=== PATIENT | female | born 1945 | race Caucasian/White ===

== ENCOUNTER → 2017-06-20 | Outpatient (CLI) | payer BC, MEDICARE ==
[~2017-06-20] MED LIST: ALDACTONE 25MG25 M1 PO; ASPIR-LOW81 MG PO; ASPIRIN E.C. 8181 MG PO; BENAZEPRIL20 MG PO; BORAGE; CALCIUM 600/VIT1 TAB PO; CALCIUM CARBON500 M1 PO; CYCLOBENZAPRINE10 MG PO; FISH OIL1 IU PO; FISH OIL1000 MG PO; FLAXSEED OIL1 CAP PO; FLEXERIL10 MG PO; GLUCOSAMINE CHO1 CAP PO; GLUCOSAMINE/CHONDROI; HCTZ; LEVOTHYROXIN0.088 MG PO; LEVOTHYROXINE0.05 M1 PO; LEVOXYL0.1 MG PO; LIPITOR 10MG10 MG PO; LORATADINE10 MG PO; LOTENSIN 1010 MG/TAB PO; LOTENSIN10 MG PO; MUCINEX 60600 MG/TAB PO; OSTEO-BI-FLEX 21 TAB PO; PHENERGAN 25 TA25 MG PO; PRAVACHOL 20MG20 MG PO; PRAVASTATIN20 MG PO; PREMARIN VAG42.5 GM VG; PREVASTATIN PO; TAMBOCOR 1100 MG/TAB PO; TEMOVATE OINT30 GM TP; TIAZAC360 MG PO; TOPROL XL100 MG PO; TOPROL XL50 MG PO; VITAMIN D; XYAL5 MG PO; ZANTAC 7575 MG PO
== END ==
LOC: MC.RAD 07:39
DX: Z12.31 Encounter for screening mammogram for malignant neoplasm of breast (principal); R92.0 Mammographic microcalcification found on diagnostic imaging of breast

== ENCOUNTER → 2017-06-26 | Outpatient (CLI) | payer BC, MEDICARE | LOC: MC.RAD 14:26 | DX: R92.0 Mammographic microcalcification found on diagnostic imaging of breast (principal) ==

== ENCOUNTER → 2017-07-03 | Outpatient (CLI) | payer BC, MEDICARE | LOC: MC.RAD 08:21 | DX: R92.0 Mammographic microcalcification found on diagnostic imaging of breast (principal) ==

== ENCOUNTER 2017-08-09 07:28 | Day surgery (SDC) | payer BC, MEDICARE ==
[2006-09-02 10:22] VITALS: BP 151/85
[~2017-08-09] VITALS: Ht 160 cm; Wt 65.5 kg
[2017-08-09 08:44] VITALS: BP 155/76; PULSE 63; TEMP 98.2
[2017-08-09] MEDS ORDERED: ZANTAC 150MG T150 MG PO (09:02)
[2017-08-09] MEDS ORDERED: SYNTHROID0.088 MG/T PO (09:03)
[2017-08-09] MEDS ORDERED: ATROVENT NASAL15 ML NS (09:10)
[2017-08-09] MEDS ORDERED: STOOL SOFTENER100 M2 PO (09:11)
[2017-08-09] MEDS ORDERED: PROBIOTIC-MAJOR PO (09:11)
[2017-08-09] MEDS ORDERED: TYLENOL 500MG500 MG PO (09:12)
[2017-08-09] MEDS ORDERED: TYLENOL SINUS1 EACH PO (09:13)
[2017-08-09 11:30] VITALS: BP 121/56; PULSE 61; TEMP 97.9
[2017-08-09 11:45] VITALS: BP 117/61; PULSE 60
[2017-08-09 12:00] VITALS: BP 142/53; PULSE 77
[2017-08-09 12:15] VITALS: BP 137/73; PULSE 90
[2017-08-09 12:30] VITALS: BP 148/66; PULSE 87
== END 2017-08-09 12:50 | disposition home or self-care (01) ==
LOC: SDCO 07:28
DX: D05.01 Lobular carcinoma in situ of right breast (principal); I10 Essential (primary) hypertension; E03.9 Hypothyroidism, unspecified; I48.91 Unspecified atrial fibrillation; M35.3 Polymyalgia rheumatica; E78.5 Hyperlipidemia, unspecified; K21.9 Gastro-esophageal reflux disease without esophagitis; Z95.0 Presence of cardiac pacemaker; Z82.49 Family history of ischemic heart disease and other diseases of the circulatory system; Z87.891 Personal history of nicotine dependence
CPT/HCPCS: J0690; J1100; J2250; J2405; J2704; J2795; J3010; J7120

== ENCOUNTER → 2018-07-29 | Outpatient (CLI) | payer BC ==
[~2018-07-29] MED LIST changes: +ATROVENT NASAL15 ML NS; +PROBIOTIC-MAJOR PO; +STOOL SOFTENER100 M2 PO; +SYNTHROID0.088 MG/T PO; +TYLENOL 500MG500 MG PO; +TYLENOL SINUS1 EACH PO; +ZANTAC 150MG T150 MG PO
== END ==
LOC: MC.RAD 14:00
DX: N63.20 Unspecified lump in the left breast, unspecified quadrant (principal); Z85.3 Personal history of malignant neoplasm of breast; Z98.890 Other specified postprocedural states
CPT/HCPCS: G0279

== ENCOUNTER → 2020-06-10 | Outpatient (CLI) | payer BC ==
[~2020-06-10] MED LIST changes: +ANORO IH; +FLAXSEED OIL1000 MG; +HCTZ12.5TAB PO; +LINZESS72 MCG PO; +PEPCID 20MG TAB20 MG PO; +REMERON 15M15 MG/TA1 PO; -SYNTHROID0.088 MG/T PO; +SYNTHROID0.1 MG/TAB PO; +TAMOXIFEN CITRA20 MG PO; +ZOFRAN ODT4 MG PO
== END ==
LOC: MC.RAD 11:17
DX: Z12.31 Encounter for screening mammogram for malignant neoplasm of breast (principal)

== ENCOUNTER → 2021-07-17 | Outpatient (CLI) | payer BC | LOC: MC.RAD 13:15 | DX: Z12.31 Encounter for screening mammogram for malignant neoplasm of breast (principal); Z85.3 Personal history of malignant neoplasm of breast ==

== ENCOUNTER 2021-09-27 15:55 | Outpatient (CLI) | payer BC ==
[2006-09-02 10:22] VITALS: BP 151/85
[~2021-09-27] VITALS: Ht 160 cm; Wt 57.5 kg
[~2021-09-27 15:55] MED LIST changes: -SYNTHROID0.1 MG/TAB PO; +SYNTHROID0.112 MG/T PO
[2021-09-27 16:14] VITALS: BP 143/86; PULSE 69; TEMP 98.6
[2021-09-27] MEDS ORDERED: PRILOSEC10 MG PO (16:29)
[2021-09-27] MEDS ORDERED: ARICEPT10 MG PO (16:29)
[2021-09-27] MEDS ORDERED: PRESERVISION1 SGL PO (16:30)
== END 2021-09-27 19:03 | disposition home or self-care (01) ==
LOC: EUO 15:55
DX: M81.0 Age-related osteoporosis without current pathological fracture (principal); Z79.899 Other long term (current) drug therapy
CPT/HCPCS: J0897

== ENCOUNTER 2022-06-05 12:46 | Outpatient (CLI) | payer BC ==
[2006-09-02 10:22] VITALS: BP 151/85
[~2022-06-05] VITALS: Ht 160 cm; Wt 53.9 kg
[~2022-06-05 12:46] MED LIST changes: +ARICEPT10 MG PO; +PRESERVISION1 SGL PO; +PRILOSEC10 MG PO
[2022-06-05 13:06] VITALS: BP 164/84; PULSE 73; TEMP 98.7
[2022-06-05] MEDS ORDERED: PROLIA60 MG/ML SQ (13:18)
[2022-06-05] MEDS ORDERED: VITAMIND3 5000 PO (13:19)
[2022-06-05] MEDS ORDERED: OSCAL 500 TAB500 MG PO (13:19)
[2022-06-05] MEDS ORDERED: REMERON45 MG PO (13:20)
--- NOTE | 2022-06-05 13:28 | NUR ---
Pt and exit dept following prolia injection. states she's toelrated previous injections without issue. Gait steady.
== END 2022-06-05 13:28 | disposition home or self-care (01) ==
LOC: EUO 12:46
DX: M81.0 Age-related osteoporosis without current pathological fracture (principal)
CPT/HCPCS: J0897

== ENCOUNTER 2024-04-27 10:55 | Emergency (ER) | payer BC ==
[~2024-04-27] VITALS: Ht 157.5 cm; Wt 54.5 kg
[~2024-04-27 10:55] MED LIST changes: +CITRACAL-D3 ER1 EACH PO; +GAS RELIEF125 MG PO; +MUCINEX 60600 MG/TA1 PO; +OSCAL 500 TAB500 MG PO; +PRILOSEC 20MG20 MG PO; -PRILOSEC10 MG PO; +PROLIA60 MG/ML SQ; +REMERON45 MG PO; +VITAMIND3 5000 PO
[2024-04-27 10:58] VITALS: TEMP 97.5
[2024-04-27] MEDS ORDERED: NS 500 ML IV ONE (11:15)
[2024-04-27 11:57] LABS: BASO % 0.3 % (0.0-2.0); EOS % 0.6 % (0.0-4.0); GRAN # 3.7 K/mm3 (1.4-6.5); GRAN % 58.5 % (42.2-75.2); HEMATOCRIT 46.8 % (37.0-47.0); HEMOGLOBIN 15.2 g/dl (12.5-16.0); LYMPH # 2.2 K/mm3 (1.2-3.4); MEAN CELL VOLUME 91 fl (80.0-100.0); MEAN CORPUSCULAR HEMOGLOBIN 30 pg (27-31); MEAN CORPUSCULAR HGB CONC 33 g/dl (33.0-37.0); MONO # 0.4 K/mm3 (0.1-0.6); MONO % 6.4 % (1.7-9.3); PLATELET COUNT 250 K/mm3 (130-400); RED BLOOD COUNT 5.14 M/mm3 (4.10-5.30); REDCELL DISTRIBUTION WIDTH-CV 13.3 % (11.5-14.5)
[2024-04-27 12:15] LABS: ALBUMIN 3.7 g/dL (3.4-4.8); BILIRUBIN,TOTAL 0.6 mg/dL (0.2-1.2); CALCIUM 9.5 mg/dL (8.4-10.2); CREATININE, serum 1.53 mg/dL (0.57-1.11); TOTAL PROTEIN 6.8 g/dl (6.2-8.1)
[2024-04-27 12:19] LABS: COLLECTION METHOD CATHETER
[2024-04-27 12:21] LABS: URINE APPEARANCE CLEAR (CLEAR/HAZY); URINE BLOOD NEGATIVE (NEGATIVE); URINE COLOR YELLOW (YELLOW); URINE GLUCOSE NEGATIVE (NEGATIVE); URINE KETONE NEGATIVE (NEGATIVE); URINE NITRATE POSITIVE (NEGATIVE); URINE PROTEIN(semi-quant) NEGATIVE (NEGATIVE); URINE UROBILINOGEN 0.2 E.U/dL (0.2-1.0)
[2024-04-27] MEDS ORDERED: CEPHALEXIN500 M1 PO (13:23)
[2024-04-27] MEDS ORDERED: cefTRIAXone 1 G in Water For Injection,Sterile 10 ML IV ONE (13:30)
[2024-04-27 13:32] VITALS: BP 116/58; PULSE 69
[2024-05-02] MEDS ORDERED: CALCIUM WITH D31 CTB (20:30)
== END 2024-04-27 13:48 | disposition home or self-care (01) ==
LOC: COL.ER 10:55
PROVIDERS: Personal Emergency Response Attendant
DX: N39.0 Urinary tract infection, site not specified (principal); Z96.0 Presence of urogenital implants
CPT/HCPCS: J0696; J7040

== ENCOUNTER 2024-05-02 16:47 | Inpatient (IN) | payer MEDICARE, BC ==
[~2024-05-02] VITALS: Ht 160 cm; Wt 57.5 kg
[~2024-05-02 16:47] MED LIST changes: +CEPHALEXIN500 M1 PO
[2024-05-02] MEDS ORDERED: NS 1,000 ML IV ONE (17:00)
[2024-05-02 17:02] LABS: COLLECTION METHOD CATHETER
[2024-05-02 17:11] LABS: PH 5.5 (5.0-8.5); URINE APPEARANCE CLEAR (CLEAR/HAZY); URINE BLOOD NEGATIVE (NEGATIVE); URINE COLOR YELLOW (YELLOW); URINE GLUCOSE NEGATIVE (NEGATIVE); URINE KETONE 1+ (NEGATIVE); URINE NITRATE NEGATIVE (NEGATIVE); URINE PROTEIN(semi-quant) NEGATIVE (NEGATIVE); URINE UROBILINOGEN 0.2 E.U/dL (0.2-1.0)
[2024-05-02] MEDS ORDERED: Acetaminophen 325 MG TAB PO ONE (17:15)
[2024-05-02 18:06] LABS: HEMOGLOBIN 12.2 g/dl (12.5-16.0); MEAN CELL VOLUME 88 fl (80.0-100.0); MEAN CORPUSCULAR HEMOGLOBIN 29 pg (27-31); MEAN CORPUSCULAR HGB CONC 33 g/dl (33.0-37.0); MEAN PLATELET VOLUME 10.3 fl (7.4-10.4); PLATELET COUNT 172 K/mm3 (130-400); RED BLOOD COUNT 4.15 M/mm3 (4.10-5.30); REDCELL DISTRIBUTION WIDTH-CV 13.3 % (11.5-14.5)
[2024-05-02 18:13] LABS: HEMATOCRIT 36.7 % (37.0-47.0)
[2024-05-02 18:26] LABS: ALBUMIN 3.2 g/dL (3.4-4.8); BILIRUBIN,TOTAL 0.6 mg/dL (0.2-1.2); C-REACTIVE PROTEIN 0.49 mg/dL (0.00-0.50); CALCIUM 8.3 mg/dL (8.4-10.2); CREATININE, serum 1.1 mg/dL (0.57-1.11); POTASSIUM 3.6 mEq/L (3.5-4.5); TOTAL PROTEIN 5.6 g/dl (6.2-8.1)
[2024-05-02] MEDS ORDERED: Iohexol 300 - 100 ML VIAL IV ONE (18:42)
[2024-05-02] MEDS ORDERED: NS 100 ML IV ONE (18:43)
[2024-05-02 18:56] LABS: BAND 5 % (0-10); LYMPHOCYTE 5 % (20.0-51.0); NEUTROPHILS 88 % (42.0-75.2); PLATELET ESTIMATE NORMAL (NORMAL)
[2024-05-02] MEDS ORDERED: CLARITIN 1010 MG/TAB PO (20:29)
[2024-05-02] MEDS ORDERED: CALCIUM WITH D31 CTB PO (20:30)
[2024-05-02] MEDS ORDERED: Atorvastatin 10 MG TAB PO SCH (20:45)
[2024-05-02] MEDS ORDERED: Donepezil 5 MG TAB PO SCH (21:00)
[2024-05-02] MEDS ORDERED: Mirtazapine 15 MG TAB PO SCH (21:00)
[2024-05-02] MEDS ORDERED: Ondansetron 4 MG/2 ML VIAL IV PRN (21:15)
[2024-05-02] MEDS ORDERED: D5 1/2 NS 1,000 ML IV SCH ×2 (21:15→21:30)
[2024-05-02] MEDS ORDERED: Acetaminophen 325 MG TAB PO PRN (21:15)
--- NOTE | 2024-05-02 23:00 | NUR ---
Pt transferred to room 326 from ED via bed accompanied by . Pt is alert and oriented to person. Admission completed. Pt is unable to answer questions other than "yes" or "no" questions. Fall risk precautions put into place. Bed alarm on, bed locked and low, yellow gown, and yellow socks placed on pt. At time of receival, pt appears to have had a small loose bowel movement. Incontinence care provided. Unable to obtain stool sample d/t insufficient amount of stool. Contact isolation in place until testing completed. PIV present to R hand and is saline locked at this time. Pt given scheduled HS medications PO several at a time w/o difficulty swallowing. Pt and pt denies any needs or concerns at this time. Call light in reach of pt. Care ongoing.
[2024-05-02 23:37] VITALS: BP 127/74; PULSE 81; TEMP 99.2
[2024-05-03] VITALS (7 sets, daily range): BP systolic 92–134; BP diastolic 48–70; PULSE 69–70; TEMP 98.4–100.6
[2024-05-03 05:18] LABS: CLOSTRIDIUM DIFF A/B POS
[2024-05-03 06:15] LABS: BASO % 0.3 % (0.0-2.0); GRAN # 9.8 K/mm3 (1.4-6.5); GRAN % 86.1 % (42.2-75.2); HEMATOCRIT 38.2 % (37.0-47.0); HEMOGLOBIN 12.6 g/dl (12.5-16.0); LYMPH # 0.8 K/mm3 (1.2-3.4); LYMPH % 7.4 % (20.0-51.0); MEAN CELL VOLUME 87 fl (80.0-100.0); MEAN CORPUSCULAR HEMOGLOBIN 29 pg (27-31); MEAN CORPUSCULAR HGB CONC 33 g/dl (33.0-37.0); MEAN PLATELET VOLUME 10.6 fl (7.4-10.4); MONO # 0.7 K/mm3 (0.1-0.6); MONO % 5.8 % (1.7-9.3); PLATELET COUNT 181 K/mm3 (130-400); RED BLOOD COUNT 4.37 M/mm3 (4.10-5.30); REDCELL DISTRIBUTION WIDTH-CV 13.5 % (11.5-14.5)
--- NOTE | 2024-05-03 06:18 | NUR ---
Pt has been monitored throughout the night and has been observed resting soundly w/ eyes closed. x3 episodes of brown loose stool. Incontinence care provided. C.Diff testing positive. Contact isolation maintained. Pt has not demonstrated signs of discomfort or nausea. No episodes of emesis throughout the night. PIV remains in place to R hand w/ D51/2NS @ 100ml/HR. NAD present. Bed alarm on. Bed low and locked. Call light in reach. Care ongoing.
[2024-05-03 06:37] LABS: BILIRUBIN,TOTAL 0.9 mg/dL (0.2-1.2); CALCIUM 8.1 mg/dL (8.4-10.2); CREATININE, serum 1.09 mg/dL (0.57-1.11); POTASSIUM 3.2 mEq/L (3.5-4.5); TOTAL PROTEIN 5.5 g/dl (6.2-8.1)
[2024-05-03] MEDS ORDERED: Loratadine 10 MG TAB PO SCH (09:00)
[2024-05-03] MEDS ORDERED: Pantoprazole 40 MG in NS 10 ML IV SCH (09:00)
[2024-05-03] MEDS ORDERED: Omega-3 Fatty Acid Esters (OTC) 1,000 MG CAP PO SCH (09:00)
[2024-05-03] MEDS ORDERED: Vancomycin 125 MG CAP PO SCH (09:30)
[2024-05-03] MEDS ORDERED: *Potassium Replacement Protocol MC SCH (09:45)
[2024-05-03] MEDS ORDERED: Potassium Bicarbonate/Citrate 20 MEQ Effervescent TAB PO SCH (09:45)
--- NOTE | 2024-05-03 10:24 | NUR ---
SW contacted patient's to complete intake assessment and discuss discharge planning. Patient's (Cricket Medina [phone]) was currently in room with patient. He confirmed that lives in the home with him, and currently not using any DMEs and needs support with ADLs. He informed SW that their daughter comes to aid patient with showering and shared that they have to remind her to eat and drink, reports she sleeps most of the day. Mr. Medina confirmed that her PCP is Dr. Mejia and pharmacy of choice is [facility]. Pending discharge plan at this time.
--- NOTE | 2024-05-03 18:00 | NUR ---
PATIENT ASLEEP, RESTING IN BED. PATINET AROUSES TO NAME. PATIENT TAKES LOTS OF ENCOURAGEMENT TO DRINK ANY FLUIDS. PATIENTS FRIEND IS AT BEDSIDE. CALL LIGHT WITHIN REACH, FALL PRECAUTIONS IN PLACE. BED ALARM ON
--- NOTE | 2024-05-03 20:00 | NUR ---
Initial shift assessment done- sleeping but awakened easily, does not answer questions, not speaking, did take her meds one at a time with needing alot of directions, falling back to sleep immediately- leaving for the night, Bed alarm on- close to [facility]. IV fluids of D5 1/2 NS at 100cc/hr.
[2024-05-04] VITALS (11 sets, daily range): BP systolic 101–146; BP diastolic 58–110; PULSE 70–116; TEMP 97.8–98.7
--- NOTE | 2024-05-04 06:00 | NUR ---
Up to BSC 4-5 times during the night,having liquid brown stool, VSS. On contact plus Isolation.
--- NOTE | 2024-05-04 07:00 | NUR ---
PATIENT AWAKE AND ALERT, STILL NON REPONSIVE TO RN UNLESS ASKED YES OR NO QUESTIONS, CALL LIGHT WITHIN REACH, IVF INFUSING. FALL PRECAUTIONS IN PLACE. BED ALARM ON.
--- NOTE | 2024-05-04 09:40 | NUR ---
warehouse worker 2nd shift reviewed PT recommendations of SNF. KEO met with patient's , Cricket, and reviewed the PT recommendations. SW provided Medicare.gov list of options. Cricket reports he is familiar with [facility] but any of the three facilities in [place] would be okay. Cricket would like a referral sent to all three and will see which ones are able to accept. KEO secure emailed SNF referral to [facility]. Discharge plan: SNF
--- NOTE | 2024-05-04 09:47 | NUR ---
sail lay out worker spoke with patient's , Cricket, whom reports patient has Medicare only part A. Discharge plan: SNF
--- NOTE | 2024-05-04 09:52 | NUR ---
THIS RN CALLED LAB TO INQUIRE WHY PATIENTS [facility] LAB[facility] STILL SHOW NOT RECIEVED. PER PHLEB, PATIENT WAS TOO HARD TO GET HOWEVER HE WILL COME BACK TO REATTEMPT NOW.
[2024-05-04] MEDS ORDERED: Vancomycin 125 MG/5 ML Oral Soln 300 ML BOTTLE PO SCH (10:00)
[2024-05-04] MEDS ORDERED: 1/2 NS & 20 mEq KCl 1,000 ML IV SCH (10:30)
[2024-05-04 10:36] LABS: BASO % 0.2 % (0.0-2.0); EOS # 0.1 K/mm3 (0.0-0.7); EOS % 0.6 % (0.0-4.0); GRAN # 6.5 K/mm3 (1.4-6.5); GRAN % 77.2 % (42.2-75.2); HEMOGLOBIN 11.8 g/dl (12.5-16.0); LYMPH # 1.3 K/mm3 (1.2-3.4); LYMPH % 15.9 % (20.0-51.0); MEAN CELL VOLUME 89 fl (80.0-100.0); MEAN CORPUSCULAR HEMOGLOBIN 29 pg (27-31); MEAN CORPUSCULAR HGB CONC 33 g/dl (33.0-37.0); MEAN PLATELET VOLUME 10.4 fl (7.4-10.4); MONO # 0.5 K/mm3 (0.1-0.6); MONO % 5.5 % (1.7-9.3); PLATELET COUNT 165 K/mm3 (130-400); RED BLOOD COUNT 4.07 M/mm3 (4.10-5.30); REDCELL DISTRIBUTION WIDTH-CV 13.5 % (11.5-14.5)
[2024-05-04 10:38] LABS: HEMATOCRIT 36.1 % (37.0-47.0)
[2024-05-04 11:19] LABS: ALBUMIN 2.5 g/dL (3.4-4.8); BILIRUBIN,TOTAL 0.3 mg/dL (0.2-1.2); CALCIUM 7.5 mg/dL (8.4-10.2); CREATININE, serum 0.96 mg/dL (0.57-1.11); TOTAL PROTEIN 5.1 g/dl (6.2-8.1)
[2024-05-04 11:27] LABS: POTASSIUM 2.8 mEq/L (3.5-4.5)
[2024-05-04] MEDS ORDERED: Potassium Chloride 100 ML IV SCH ×2 (11:45→12:15)
--- NOTE | 2024-05-04 12:30 | NUR ---
PER AIVS PATIENT UNABLE TO HAVE PICC LINE-UNABLE TO ADVANCE. DR MURPHY CALLED BY THIS RN AN IS OK WITH PATIENT HAVING A MID LINE. PATIENT TOLERATED WELL. CALL LIGHT WITHIN REACH, FALL PRECAUTIOSN IN PLACE, PATIENT RESTING IN BED.
--- NOTE | 2024-05-04 12:40 | NUR ---
PA NOTIFIED OF PATIENT CRITICAL POTASSIUM OF 2.8, PATIENT ALREADY ON PROTOCOL AND IV POTASSIUM INFUSING.
--- NOTE | 2024-05-04 15:47 | NUR ---
political worker followed up on the referrals for SNF. KEO was notified [facility] is currently full and is not able to accept this patient. KEO contacted [facility] whom is currently reviewing patient and checking her insurance. KEO contacted [facility] whom expressed they could clinically accept but working on a room as they only have a shared room available. KEO will follow up. Discharge plan: SNF
--- NOTE | 2024-05-04 21:00 | NUR ---
PT ALERT BUT DOES NOT RESPOND TO QUESTIONS, WILL OCCASIONALLY ANSWER YES/NO QUESTIONS. VSS. IVF INFUSING TO LEFT UPPER ARM MIDLINE & INT TO RT FOREARM PATENT. PT ASSISTED TO BSC WITH X2 ASSIST HAD WATERY BROWN OUTPUT. PT BACK IN BED WITH FALL & CONTACT PRECAUTIONS IN PLACE & CALL LIGHT IN REACH.
[2024-05-05] VITALS (12 sets, daily range): BP systolic 134–159; BP diastolic 73–111; PULSE 86–113; TEMP 97–98.6
[2024-05-05] MEDS ORDERED: 1/2 NS 1,000 ML IV SCH (03:15)
--- NOTE | 2024-05-05 05:37 | NUR ---
PT RESTING IN BED WITH UNLABORED RESP. UP SEVERAL TIMES TO BSC HAVING WATERY BM'S. CALL LIGHT IN REACH & FALL PRECAUTIONS IN PLACE
[2024-05-05 07:08] LABS: BASO % 0.5 % (0.0-2.0); EOS # 0.1 K/mm3 (0.0-0.7); EOS % 1.2 % (0.0-4.0); GRAN # 3.4 K/mm3 (1.4-6.5); GRAN % 60.6 % (42.2-75.2); HEMOGLOBIN 11.7 g/dl (12.5-16.0); LYMPH # 1.7 K/mm3 (1.2-3.4); LYMPH % 29.8 % (20.0-51.0); MEAN CELL VOLUME 92 fl (80.0-100.0); MEAN CORPUSCULAR HEMOGLOBIN 29 pg (27-31); MEAN CORPUSCULAR HGB CONC 32 g/dl (33.0-37.0); MEAN PLATELET VOLUME 10.6 fl (7.4-10.4); MONO # 0.4 K/mm3 (0.1-0.6); MONO % 7.4 % (1.7-9.3); PLATELET COUNT 162 K/mm3 (130-400); REDCELL DISTRIBUTION WIDTH-CV 13.7 % (11.5-14.5)
[2024-05-05 07:09] LABS: HEMATOCRIT 36.8 % (37.0-47.0)
[2024-05-05 07:52] LABS: ALANINE AMINOTRANSFERASE 22 U/L (0-55); ALBUMIN 2.2 g/dL (3.4-4.8); ALKALINE PHOSPHATASE 45 U/L (40-150); ANION GAP 8 mmol/L (7-16); AST,SGOT 16 U/L (5-34); BILIRUBIN,TOTAL 0.3 mg/dL (0.2-1.2); CALCIUM 6.9 mg/dL (8.4-10.2); CHLORIDE 118 mEq/L (98-107); GLUCOSE 95 mg/dL (70-99); POTASSIUM 3.6 mEq/L (3.5-4.5); SODIUM 143 mEq/L (136-145); TOTAL PROTEIN 4.5 g/dl (6.2-8.1)
[2024-05-05 08:22] LABS: BLOOD UREA NITROGEN < 5 mg/dL (10-20)
[2024-05-05] MEDS ORDERED: Magnesium Sulfate 2 GM/50 ML IV SOLN IV SCH (09:00)
--- NOTE | 2024-05-05 09:00 | NUR ---
SHIFT ASSESSMENT COMPLETED AT THIS TIME. PT A&O ONLY TO HERSELF AND . PT DENIES PAIN. SCHEDULED MEDICATIONS ADMINISTERED AT THIS TIME, ONE PILL AT A TIME. PT STILL IN CONTACT PLUS PRECAUTIONS. AT BEDSIDE WERING PPE. REPORTS ONE LOOSE STOOL T0DAY. BED IN LOWEST POSITION. CALL LIGHT WIHTIN REACH. FALL PRECAUTIONS IN PLACE.
[2024-05-05] MEDS ORDERED: Potassium Bicarbonate/Citrate 20 MEQ Effervescent TAB PO SCH (12:00)
--- NOTE | 2024-05-05 14:43 | NUR ---
child daycare worker was notified [facility] is able to accept patient. KEO met with patient's and patient to discuss options. Cricket reports his first preference would be [facility] just based on location but would be okay with [facility] as he is familiar with their facility. KEO explained she would follow up with [facility] to determine if they would have a private room available. KEO was notified that [facility] does not have a private room available only shared. KEO explained with patient having C DIFF she would need a private room. KEO contacted [facility] whom expressed they would be able to accept and would have a private room available for her. KEO contacted patient's , Cricket, and explained [facility] does not have a private room but [facility] is able to accept patient to a private room. Cricket expressed he is okay with [facility] and only wanted to know what time discharge would be. KEO explained she would follow up with him tomorrow or morning as soon as she knows. No further questions or concerns at this time. Discharge plan: [facility] - [facility]
--- NOTE | 2024-05-05 14:48 | NUR ---
fruit or nut farmworker secure emailed clinical updates to [facility].
--- NOTE | 2024-05-05 18:29 | NUR ---
ANNA ASLEEP, RESTING IN BED, APPEARS TO BE IN NO ACUTE DISTRESS, RESPIRATIONS WNL, HER IS AT BEDSIDE. PATIENT HAD A TOTAL OF 2 SMALL LOOSE STOOLS TODAY. PATIENTS IVF INFUSING ORDERED, CALL LIGHT WTIHIN REACH, FALL PRECAUTIONS IN PLACE, BED ALARM ON.
--- NOTE | 2024-05-05 20:30 | NUR ---
Patient resting in bed. Denies any pain or needs at this time. Assessment complete. IV in right hand flushes with some pain. Midline to left upper arm flushes easily with good blood return. Call light and personal items in reach. Bed in low position and bed alarm on.
[2024-05-06] VITALS (14 sets, daily range): BP systolic 123–163; BP diastolic 59–106; PULSE 69–74; TEMP 97.2–98.1
--- NOTE | 2024-05-06 07:00 | NUR ---
BEDSIDE REPORT RECIEVED AT THIS TIME.
--- NOTE | 2024-05-06 08:15 | NUR ---
patient sleeping in bed, at bedside. patient husbands expresses patient has been sleeping off and on. Patient reactive to voice. Patient midline has blood return no redness, or inflamation. patient call light within reach. bed alarm on.
--- NOTE | 2024-05-06 09:12 | NUR ---
SHIFT ASSESSMENT COMPLETED AT THIS TIME. PT A&O TO HERSLELF ONLY. PT HAS CONTINUED TO HAVE LOOSE STOOLS THIS MORNING. DC'S INT TO RIGHT WRIST D/T PT REPORTING PAIN WHEN FLUSHING. MORNING MEDICATIONS ADMINISTERED AT THIS TIME. PT TOLERATED PILLS WITHOUT COMPLICATIONS. PT VPICES NO CONCERNS OR QUESTIONS AT THIS TIME. AT BEDSIDE ASSISTING PT EAT BREAKFAST. CALL LIGHT WITHIN REACH, BED IN LOWEST POSITION.
[2024-05-06] MEDS ORDERED: Potassium Bicarbonate/Citrate 20 MEQ Effervescent TAB PO SCH (10:00)
--- NOTE | 2024-05-06 13:01 | NUR ---
aquacultural worker supervisor attended interdiscplinary clinical rounding with Dr. Mendoza. Patient will be ready for discharge tomorrow to [facility]. secure emailed clinical updates to [facility]. Discharge plan: [facility]
--- NOTE | 2024-05-06 17:58 | NUR ---
patient has been more awake throughout the shift. Patient able to ambulate with assistance to toilet. patient continues to have bowel movements that are not formed. Patient at bedside. call light within reach. bed alarm on.
--- NOTE | 2024-05-06 20:50 | NUR ---
Patient resting in bed. Denies any pain or needs at this time. Patient is A&O x3. Assessment complete. Midline to left upper arm flushes easily with no blood return from both ports. Call light and personal items in reach. Bed in low position and bed alarm on.
[2024-05-07 01:13] VITALS: BP_SYST 137
[2024-05-07 04:31] VITALS: BP 147/69; PULSE 70; TEMP 97.9
[2024-05-07 05:04] VITALS: BP_SYST 147
--- NOTE | 2024-05-07 05:30 | NUR ---
Patient resting in bed with eyes closed. Respirations even and unlaborded. Overall patient had more strenght and stability than the previous night and was able to walk to and from the bathroom with SBA. No changes over night. Call lgiht and personal items in reach. Bed in low position and bed alarm on.
--- NOTE | 2024-05-07 07:00 | NUR ---
BEDSDIE SHIFT REPORT RECIEVED AT THIS TIME.
[2024-05-07 07:33] VITALS: BP 157/82; PULSE 71; TEMP 98.1
[2024-05-07] MEDS ORDERED: FIRVANQ25 MG/1 ML PO (09:12)
[2024-05-07 09:31] LABS: BASO % 0.4 % (0.0-2.0); EOS # 0.1 K/mm3 (0.0-0.7); GRAN # 4.4 K/mm3 (1.4-6.5); GRAN % 63.7 % (42.2-75.2); HEMATOCRIT 38.3 % (37.0-47.0); HEMOGLOBIN 12.4 g/dl (12.5-16.0); LYMPH # 1.9 K/mm3 (1.2-3.4); LYMPH % 26.8 % (20.0-51.0); MEAN CELL VOLUME 88 fl (80.0-100.0); MEAN CORPUSCULAR HEMOGLOBIN 28 pg (27-31); MEAN CORPUSCULAR HGB CONC 32 g/dl (33.0-37.0); MONO # 0.5 K/mm3 (0.1-0.6); MONO % 6.5 % (1.7-9.3); PLATELET COUNT 240 K/mm3 (130-400); RED BLOOD COUNT 4.37 M/mm3 (4.10-5.30); REDCELL DISTRIBUTION WIDTH-CV 13.3 % (11.5-14.5)
[2024-05-07 09:49] LABS: ANION GAP 6 mmol/L (7-16); CALCIUM 7.6 mg/dL (8.4-10.2); CHLORIDE 113 mEq/L (98-107); CREATININE, serum 0.87 mg/dL (0.57-1.11); GLUCOSE 105 mg/dL (70-99); MAGNESIUM 2.1 mg/dL (1.6-2.6); SODIUM 142 mEq/L (136-145)
[2024-05-07 09:50] LABS: BLOOD UREA NITROGEN < 5 mg/dL (10-20)
[2024-05-07 09:59] VITALS: BP_SYST 157
--- NOTE | 2024-05-07 10:01 | NUR ---
SHIFT ASSESSMENT COMPLETED AT THIS TIME. PT ONLY A&OX2. PT DENIES PAIN. SCHEDULED MORNING MEDICATIONS ADMINISTERED AT THIS TIME WITHOUT COMPLICATIONS. BED IN LOWEST POSITION. CALL LIGHT WITHIN REACH.
--- NOTE | 2024-05-07 12:00 | NUR ---
DISCHARGE ORDERS RECIEVED. INFORMED BY SOCIAL WORK [facility] WILL BE HERE AT 1230 TO TRANSPORT PATIENT. REPORT CALLED TO [facility]. AT BEDSIDE. SURINDER ARMSTRONG DC'D MIDLINE. CALL LIGHT WITHIN REACH.
--- NOTE | 2024-05-07 12:00 | NUR ---
PATIENT MIDLINE REMOVED BY THIS RN PER PROTOCOL. PATIENT FLAT TIME ENDS AT 230. PATIENT RESTING IN BED, LYING FLAT. BED ALARM ON. PATIENTS AT BEDSIDE. CALL LIGHT WITHIN REACH.
--- NOTE | 2024-05-07 13:10 | NUR ---
PT TRANSPORTED VIA WHEELCHAIR OUT OF FACILITY WITH [facility] [place] [facility] STAFF. ALONG SIDE.
--- NOTE | 2024-05-07 13:11 | NUR ---
precast concrete ironworker attended interdisciplinary clinical rounding with Dr. Mendoza. Patient is medically ready for discharge today. Patient will go to [facility] today. KEO secure emailed clinical updates and discharge orders to [facility]. KEO met with patient and patient's to review IM from Medicare. Patient and understood the form. Patient requested her sign the form, he signed the form. KEO made copy, placed original in chart and provided copy to patient. KEO contacted [facility] and confirmed they are able to accept patient today. [facility] scheduled transportation for 12:30 pm. KEO notified patient, patient's , patient's nurse and post anesthesia care unit nurse. Discharge plan: [facility]
== END 2024-05-07 13:21 | DRG 872 ==
LOC: COL.ER 16:47 → MEDICAL 20:43 → SURG 20:43 → MEDICAL 05-03 08:29
PROVIDERS: Nurse Practitioner; Physician Assistant; ADMIT Internal Medicine
PROC: 05HC33Z Insertion of Infusion Device into Left Basilic Vein, Percutaneous Approach (ICD-10-PCS; principal; 2024-05-04)
DX: A41.4 Sepsis due to anaerobes (principal); A04.72 Enterocolitis due to Clostridium difficile, not specified as recurrent; G20.A1 Parkinson's disease without dyskinesia, without mention of fluctuations; F02.80 Dementia in other diseases classified elsewhere, unspecified severity, without behavioral disturbance, psychotic disturbance, mood disturbance, and anxiety; Z20.822 Contact with and (suspected) exposure to COVID-19; Z66 Do not resuscitate; I48.91 Unspecified atrial fibrillation; E86.0 Dehydration; I10 Essential (primary) hypertension; E78.5 Hyperlipidemia, unspecified; E03.9 Hypothyroidism, unspecified; Z95.0 Presence of cardiac pacemaker; Z88.1 Allergy status to other antibiotic agents; Z88.5 Allergy status to narcotic agent; Z88.8 Allergy status to other drugs, medicaments and biological substances; Z79.890 Hormone replacement therapy; Z79.899 Other long term (current) drug therapy; Z79.82 Long term (current) use of aspirin; Z87.440 Personal history of urinary (tract) infections; Z23 Encounter for immunization
CPT/HCPCS: C1751; J1650; J2470; J2543; J3475; J3480; J7030; Q9967